=== PATIENT | female | born 1960 | race Caucasian/White ===

== ENCOUNTER 2019-04-28 11:21 | Inpatient (IN) | payer OTHER ==
[~2019-04-28] VITALS: Ht 157.5 cm; Wt 84.0 kg
[~2019-04-28 11:21] MED LIST: ALPR0.5T6 PO; ASPI-630 PO; CYCL10TA2 PO; ESTR2TAB PO; HYDR-2763 PO; LOSA100T14 PO; MELO15TA23 PO; METO10TA81 PO; MONT10TA49 PO; PANT20TA2 PO; PREG75CA PO; ZOLP10TA4 PO
[2019-04-28] MEDS ORDERED: IV NORMAL SALINE 1000ML BAG 1,000 ML IV SCH (11:35)
--- NOTE | 2019-04-28 11:57 | EKG ---
[facility] [address] [place] [address] Test Date: 2019-04-28 Test Time: 11:44:19 Pat Name: JALEESA KITCHEN Department: Room: Gender: F Property Adjuster: : 1960 Requested By: MARLEE WEEMS Order Number: [id number] Reading MD: Kenan Courtney MD Measurements Intervals [place] Rate: 101 P: 38 IL: 136 QRS: 22 QRSD: 74 T: 39 QT: 342 QTc: 444 Interpretive Statements SINUS TACHYCARDIA Electronically Signed On 05-07-2019 16:42:31 CDT by Kenan Courtney MD
[2019-04-28] MEDS: HYDROmorphone 2 MG/ML VIAL IV/SQ PRN ×3 (12:00→14:46)
--- NOTE | 2019-04-28 12:05 | PHYS DOC ---
Past Medical History Past Medical History: Anxiety, Asthma, Pancreatitis Past Surgical History: Cholecystectomy, Hysterectomy, Splenectomy, Other Additional Past Surgical Histo: 3 right foot surgeries Alcohol Use: None Drug Use: None Adult General Chief Complaint Chief Complaint: ABDOMINAL PAIN HPI HPI Patient is a 58-year-old female who presents to the emergency department for evaluation of epigastric abdominal discomfort radiating to her back as well as radiating diffusely throughout her entire abdomen, which began on Saturday. She has not had any nausea, vomiting, fever, or chest pain. She states that she has had pancreatitis in the past and the pain feels somewhat similar. She does have a history of chronic pain, and takes hydrocodone 7.5 mg several times daily for foot pain and back pain chronically. There are no alleviating or exacerbating factors to the patient's symptoms otherwise. Review of Systems Review of Systems Constitutional: Denies fever or chills [] Eyes: Denies change in visual acuity, redness, or eye pain [] HENT: Denies nasal congestion or sore throat [] Respiratory: Denies cough or shortness of breath [] Cardiovascular: The patient denies any shortness of breath, chest pain, palpitations, or orthopnea [] GI: No additional information not addressed in HPI [] : Denies dysuria or hematuria [] Musculoskeletal: Denies back pain or joint pain [] Integument: Denies rash or skin lesions [] Neurologic: Denies headache, focal weakness or sensory changes [] Endocrine: Denies polyuria or polydipsia [] All other systems were reviewed and found to be within normal limits, except as documented in this note. Current Medications Current Medications Current Medications Medications (Trade) Dose Ordered Sig/Patsy Start Time Stop Time Status Last Admin Dose Admin Hydromorphone HCl (Dilaudid) 1 mg PRN Q15MIN PRN 04/28/19 11:45 04/29/19 11:44 04/28/19 14:46 1 MG Iohexol (Omnipaque 300 Mg/ml) 100 ml STK-MED ONCE 04/28/19 12:37 04/28/19 12:37 DC Sodium Chloride 1,000 ml @ 1,000 mls/hr Q1H 04/28/19 11:35 04/28/19 12:34 DC 04/28/19 12:00 1,000 MLS/HR Allergies Allergies Allergies Coded Allergies Type Severity Reaction Last Updated Verified cefazolin Allergy Intermediate hypotension 09/30/18 Yes clindamycin Allergy Intermediate rash 09/30/18 Yes codeine Allergy Intermediate rash 04/28/19 Yes sulfamethoxazole Allergy Intermediate 09/29/18 Yes trimethoprim Allergy Intermediate 09/29/18 Yes Physical Exam Physical Exam PHYSICAL EXAM: CONSTITUTIONAL: Well developed, well nourished HEAD: normocephalic, atraumatic EENT: PERRL, EOMI. Conjunctivae normal color, sclerae non-icteric; moist mucous membranes. NECK: Supple, non-tender; no meningismus. LUNGS: Lungs CTA, breathing even and unlabored. Normal air movement. HEART: Regular rate and rhythm, no murmur CHEST: No deformity; non-tender ABDOMEN: The abdomen is soft, normal bowel sounds are present, there is diffuse tenderness to palpation of the entire abdomen, slightly more prominently in the epigastric area, without rebound or guarding. The remainder the abdomen is soft and non-tender, no masses or bruits. EXTREM: Normal ROM; no deformity, no calf tenderness. Normal pulses palpable in all extremities. There is no pedal edema. SKIN: No rash; no diaphoresis NEURO: Alert; normal speech and cognition; CN's grossly intact; strength grossly intact without focal deficit. BACK: No CVA TTP. Current Patient Data Vital Signs Vital Signs Date Time Temp Pulse Resp B/P (MAP) Pulse Ox O2 Delivery O2 Flow Rate FiO2 04/28/19 13:32 95 23 165/84 (111) 91 Nasal Cannula 4.0 04/28/19 11:28 98.4 98.4 Lab Values Laboratory Tests Test 04/28/19 11:50 04/28/19 13:35 White Blood Count 19.0 x10^3/uL (4.0-11.0) H Red Blood Count 4.17 x10^6/uL (3.50-5.40) Hemoglobin 14.9 g/dL (12.0-15.5) Hematocrit 43.2 % (36.0-47.0) Mean Corpuscular Volume 104 fL (79-100) H Mean Corpuscular Hemoglobin 36 pg (25-35) H Mean Corpuscular Hemoglobin Concent 35 g/dL (31-37) Red Cell Distribution Width 12.9 % (11.5-14.5) Platelet Count 366 x10^3/uL (140-400) Neutrophils (%) (Auto) 73 % (31-73) Lymphocytes (%) (Auto) 21 % (24-48) L Monocytes (%) (Auto) 5 % (0-9) Eosinophils (%) (Auto) 1 % (0-3) Basophils (%) (Auto) 1 % (0-3) Neutrophils # (Auto) 13.8 x10^3/uL (1.8-7.7) H Lymphocytes # (Auto) 3.9 x10^3/uL (1.0-4.8) Monocytes # (Auto) 0.9 x10^3/uL (0.0-1.1) Eosinophils # (Auto) 0.2 x10^3/uL (0.0-0.7) Basophils # (Auto) 0.1 x10^3/uL (0.0-0.2) Segmented Neutrophils % 81 % (35-66) H Lymphocytes % 18 % (24-48) L Monocytes % 1 % (0-10) Platelet Estimate Adequate (ADEQUATE) Activated Partial Thromboplast Time 30 SEC (24-38) Sodium Level 141 mmol/L (136-145) Potassium Level 4.0 mmol/L (3.5-5.1) Chloride Level 100 mmol/L (98-107) Carbon Dioxide Level 27 mmol/L (21-32) Anion Gap 14 (6-14) Blood Urea Nitrogen 7 mg/dL (7-20) Creatinine 0.8 mg/dL (0.6-1.0) Estimated GFR (Cockcroft-Gault) 73.4 BUN/Creatinine Ratio 9 (6-20) Glucose Level 133 mg/dL (70-99) H Lactic Acid Level 1.1 mmol/L (0.4-2.0) Calcium Level 9.8 mg/dL (8.5-10.1) Total Bilirubin 0.7 mg/dL (0.2-1.0) Aspartate Amino Transferase (AST) 69 U/L (15-37) H Alanine Aminotransferase (ALT) 89 U/L (14-59) H Alkaline Phosphatase 181 U/L (46-116) H Troponin I Quantitative < 0.017 ng/mL (0.000-0.055) Total Protein 7.7 g/dL (6.4-8.2) Albumin 3.9 g/dL (3.4-5.0) Albumin/Globulin Ratio 1.0 (1.0-1.7) Lipase 552 U/L (73-393) H Urine Collection Type Void Urine Color Yellow Urine Clarity Clear Urine pH 7.0 Urine Specific [place] 1.015 Urine Protein Negative mg/dL (NEG-TRACE) Urine Glucose (UA) Negative mg/dL (NEG) Urine Ketones (Stick) Trace mg/dL (NEG) Urine Blood Negative (NEG) Urine Nitrite Negative (NEG) Urine Bilirubin Negative (NEG) Urine Urobilinogen Dipstick 0.2 mg/dL (0.2 mg/dL) Urine Leukocyte Esterase Small (NEG) Urine RBC 1-2 /HPF (0-2) Urine WBC 1-4 /HPF (0-4) Urine Squamous Epithelial Cells Many /LPF Urine Renal Epithelial Cells Occ /LPF Urine Bacteria Moderate /HPF (0-FEW) Urine Mucus Slight /LPF Laboratory Tests 04/28/19 11:50 Laboratory Tests 04/28/19 11:50 EKG EKG [Sinus rhythm at a rate of 10 1 bpm, normal axis, normal intervals, nonspecific ST/T changes are present.] Radiology/Procedures Radiology/Procedures [PROCEDURE: CT ABD PELV W/ IV CONTRST ONLY EXAM: CT Abdomen and Pelvis with IV contrast CLINICAL HISTORY: Diffuse abdominal pain, history of pancreatitis. COMPARISON: 10/01/2018, 09/29/2018 TECHNIQUE: Helical CT of the abdomen and pelvis was performed following the administration of intravenous contrast. Axial, coronal and sagittal reformatted images were generated. PQRS compliance statement - One or more of the following individualized dose reduction techniques were utilized for this study: 1. Automated exposure control 2. Adjustment of the mA and/or kV according to patient size 3. Use of iterative reconstruction technique FINDINGS: Lower chest: Linear opacities in the lower lobes likely scarring/atelectasis. Abdomen and Pelvis: Liver is enlarged measuring 20.5 cm in length. Marked hepatic hypoattenuation consistent with hepatic steatosis. There has been a cholecystectomy. No biliary ductal dilatation. Trace fat infiltration is seen about the pancreatic body which may be seen with acute pancreatitis. This can be correlated with patient's symptoms and lab values. No peripancreatic fluid collection. Homogenous enhancement of the pancreas. There has been a splenectomy. Symmetric nephrograms. Left upper pole renal cortical scarring. No focal renal lesion. No hydronephrosis. No hydroureter. Moderate colonic stool content. No evidence for bowel obstruction. No abdominal or pelvic lymphadenopathy. No abdominal or pelvic ascites. Left adnexal cystic structure is seen. Small fat-containing periumbilical hernia. Bones: Osseous structures are unremarkable. IMPRESSION: 1. Trace fat infiltration about the pancreatic body may be seen with acute pancreatitis. No associated loculated fluid collection or regions of ischemia 2. Hepatomegaly and hepatic steatosis. 3. There has been a cholecystectomy. 4. Left adnexal cystic structure measuring approximately 3.5 cm. This can be further assessed with ultrasound and is not significantly changed to 09/29/2018. ] Course & Med Decision Making Course & Med Decision Making Pertinent Labs and Imaging studies reviewed. (See chart for details) []Patient's condition remains a stable. Discussed the case with the patient's PCP, who will admit the patient for further evaluation and requested GI cons ultation, call to GI was placed. Dragon Disclaimer Dragon Disclaimer This electronic medical record was generated, in whole or in part, using a voice recognition dictation system. Departure Departure Impression: Primary Impression: Acute pancreatitis Additional Impression: Leukocytosis Disposition: ADMITTED INPATIENT Admitting Physician: Jamilah Carrera Condition: STABLE Referrals: JAMILAH CARRERA MD (PCP) Problem Qualifiers MARLEE WEEMS MD Apr 28, 2019 12:05
[2019-04-28 12:06] LABS: BASO # 0.1 x10^3/uL (0.0-0.2); BASO % 1 % (0-3); EOS # 0.2 x10^3/uL (0.0-0.7); EOS % 1 % (0-3); HEMATOCRIT 43.2 % (36.0-47.0); HEMOGLOBIN 14.9 g/dL (12.0-15.5); LYMPH # 3.9 x10^3/uL (1.0-4.8); LYMPH % 21 % (24-48); MEAN CORPUSCULAR HEMOGLOBIN 36 pg (25-35); MEAN CORPUSCULAR HGB CONC 35 g/dL (31-37); MEAN CORPUSCULAR VOLUME 104 fL (79-100); MONO # 0.9 x10^3/uL (0.0-1.1); MONO % 5 % (0-9); NEUT # 13.8 x10^3/uL (1.8-7.7); NEUT % 73 % (31-73); PLATELET COUNT 366 x10^3/uL (140-400); RED BLOOD COUNT 4.17 x10^6/uL (3.50-5.40); RED CELL DISTRIBUTION WIDTH 12.9 % (11.5-14.5)
[2019-04-28 12:15] LABS: CALCIUM 9.8 mg/dL (8.5-10.1); CREATININE 0.8 mg/dL (0.6-1.0); GFR 73.4
[2019-04-28 12:21] LABS: ALBUMIN 3.9 g/dL (3.4-5.0); TOTAL BILIRUBIN 0.7 mg/dL (0.2-1.0); TOTAL PROTEIN 7.7 g/dL (6.4-8.2)
[2019-04-28] MEDS ORDERED: IOHEXOL 300 MG/ML 100ML VIAL. ONE (12:37)
[2019-04-28] MEDS ORDERED: IOHEXOL 300 MG/ML 100ML VIAL. IV ONE (12:45)
[2019-04-28 13:01] LABS: % LYMPHS 18 % (24-48); % MONOS 1 % (0-10); % SEGS 81 % (35-66)
[2019-04-28 13:02] LABS: PLT ESTIMATE ADEQUATE (ADEQUATE)
--- NOTE | 2019-04-28 13:33 | RAD ---
EXAM: CT Abdomen and Pelvis with IV contrast CLINICAL HISTORY: Diffuse abdominal pain, history of pancreatitis. COMPARISON: 10/01/2018, 09/29/2018 TECHNIQUE: Helical CT of the abdomen and pelvis was performed following the administration of intravenous contrast. Axial, coronal and sagittal reformatted images were generated. PQRS compliance statement - One or more of the following individualized dose reduction techniques were utilized for this study: 1. Automated exposure control 2. Adjustment of the mA and/or kV according to patient size 3. Use of iterative reconstruction technique FINDINGS: Lower chest: Linear opacities in the lower lobes likely scarring/atelectasis. Abdomen and Pelvis: Liver is enlarged measuring 20.5 cm in length. Marked hepatic hypoattenuation consistent with hepatic steatosis. There has been a cholecystectomy. No biliary ductal dilatation. Trace fat infiltration is seen about the pancreatic body which may be seen with acute pancreatitis. This can be correlated with patient's symptoms and lab values. No peripancreatic fluid collection. Homogenous enhancement of the pancreas. There has been a splenectomy. Symmetric nephrograms. Left upper pole renal cortical scarring. No focal renal lesion. No hydronephrosis. No hydroureter. Moderate colonic stool content. No evidence for bowel obstruction. No abdominal or pelvic lymphadenopathy. No abdominal or pelvic ascites. Left adnexal cystic structure is seen. Small fat-containing periumbilical hernia. Bones: Osseous structures are unremarkable. IMPRESSION: 1. Trace fat infiltration about the pancreatic body may be seen with acute pancreatitis. No associated loculated fluid collection or regions of ischemia 2. Hepatomegaly and hepatic steatosis. 3. There has been a cholecystectomy. 4. Left adnexal cystic structure measuring approximately 3.5 cm. This can be further assessed with ultrasound and is not significantly changed to 09/29/2018. Electronically signed by: Calos Champion MD (04/28/2019 1:30 PM) [facility]
[2019-04-28 13:45] LABS: BILIRUBIN,URINE NEGATIVE (NEG); CLARITY,URINE CLEAR; COLOR,URINE YELLOW; NITRITE,URINE NEGATIVE (NEG); PROTEIN,URINE NEGATIVE (NEG-TRACE); UROBILINOGEN,URINE 0.2 mg/dL (0.2 mg/dL)
[2019-04-28 14:06] LABS: SQUAMOUS EPITHELIAL CELL,UR MANY /LPF
[2019-04-28 14:07] LABS: BACTERIA,URINE MODERATE /HPF (0-FEW)
[2019-04-28] MEDS ORDERED: ONDANSETRON PF 4 MG/2 ML VIAL. ONE (14:18)
[2019-04-28] MEDS ORDERED: ONDANSETRON PF 4 MG/2 ML VIAL. IV ONE (14:30)
--- NOTE | 2019-04-28 15:42 | PDOC2 ---
GI CONSULT Reason For Consult: Acute pancreatitis HPI: HPI: 58 y/o female who we saw in 09/2018 w/ pancreatitis of unclear etiology - no alcohol use, s/p cholecystectomy, normal IgG4, triglycerides, and calcium at that time. Back to ER w/ recurrent abd pain (diffuse but mostly to left and epigastrium wrapping around to left back and over left shoulder) that began on Saturday w/o precipitating events. Associated w/ decreased appetite and vomiting x 1 (in the ER after CT). H/o GERD on Protonix QD and Reglan QID. No dysphagia. No hematemesis, diarrhea, constipation, hematochezia, melena, or weight loss. EGD 2001 (Dr. Fairchild): erosive distal esophagitis, 3mm hiatal hernia. EGD 2005 (Dr. Herndon): H. pylori negative gastritis. S/p cholecystectomy (stones) and splenectomy. No previous colonoscopy. Did not have MRCP as previously recommended. Chronic foot, knee, and back pain on hydrocodone. She previously also reported Meloxicam - unclear if still taking. PMH: PMH: asthma, arthritis, GERD, hiatal hernia, pancreatitis, breast cancer, hemolytic anemia cholecystectomy, splenectomy, right foot surgery x 3, ?[place], ?mastectomy FH: Family History: Other (doesn't know) Social History: Smoke: No ALCOHOL: none Drugs: None ROS: GEN: Denies fevers, chills, sweats HEENT: Denies blurred vision, sore throat CV: Denies chest pain RESP: Denies shortness of air, cough GI: Per HPI : Denies hematuria, dysuria ENDO: Denies weight changes NEURO: Denies confusion, dizziness MSK: Denies weakness, joint pain/swelling SKIN: Denies jaundice, pruritus Vitals: Vitals: Vital Signs Date Time Temp Pulse Resp B/P (MAP) Pulse Ox O2 Delivery O2 Flow Rate FiO2 04/28/19 12:22 88 04/28/19 11:28 98.4 102 14 174/98 (123) Room Air 98.4 Labs: Labs: Laboratory Tests Test 04/28/19 11:50 04/28/19 13:35 White Blood Count 19.0 x10^3/uL (4.0-11.0) Red Blood Count 4.17 x10^6/uL (3.50-5.40) Hemoglobin 14.9 g/dL (12.0-15.5) Hematocrit 43.2 % (36.0-47.0) Mean Corpuscular Volume 104 fL (79-100) Mean Corpuscular Hemoglobin 36 pg (25-35) Mean Corpuscular Hemoglobin Concent 35 g/dL (31-37) Red Cell Distribution Width 12.9 % (11.5-14.5) Platelet Count 366 x10^3/uL (140-400) Neutrophils (%) (Auto) 73 % (31-73) Lymphocytes (%) (Auto) 21 % (24-48) Monocytes (%) (Auto) 5 % (0-9) Eosinophils (%) (Auto) 1 % (0-3) Basophils (%) (Auto) 1 % (0-3) Neutrophils # (Auto) 13.8 x10^3/uL (1.8-7.7) Lymphocytes # (Auto) 3.9 x10^3/uL (1.0-4.8) Monocytes # (Auto) 0.9 x10^3/uL (0.0-1.1) Eosinophils # (Auto) 0.2 x10^3/uL (0.0-0.7) Basophils # (Auto) 0.1 x10^3/uL (0.0-0.2) Segmented Neutrophils % 81 % (35-66) Lymphocytes % 18 % (24-48) Monocytes % 1 % (0-10) Platelet Estimate Adequate (ADEQUATE) Activated Partial Thromboplast Time 30 SEC (24-38) Sodium Level 141 mmol/L (136-145) Potassium Level 4.0 mmol/L (3.5-5.1) Chloride Level 100 mmol/L (98-107) Carbon Dioxide Level 27 mmol/L (21-32) Anion Gap 14 (6-14) Blood Urea Nitrogen 7 mg/dL (7-20) Creatinine 0.8 mg/dL (0.6-1.0) Estimated GFR (Cockcroft-Gault) 73.4 BUN/Creatinine Ratio 9 (6-20) Glucose Level 133 mg/dL (70-99) Lactic Acid Level 1.1 mmol/L (0.4-2.0) Calcium Level 9.8 mg/dL (8.5-10.1) Total Bilirubin 0.7 mg/dL (0.2-1.0) Aspartate Amino Transf (AST/SGOT) 69 U/L (15-37) Alanine Aminotransferase (ALT/SGPT) 89 U/L (14-59) Alkaline Phosphatase 181 U/L (46-116) Troponin I Quantitative < 0.017 ng/mL (0.000-0.055) Total Protein 7.7 g/dL (6.4-8.2) Albumin 3.9 g/dL (3.4-5.0) Albumin/Globulin Ratio 1.0 (1.0-1.7) Lipase 552 U/L (73-393) Urine Collection Type Void Urine Color Yellow Urine Clarity Clear Urine pH 7.0 Urine Specific [place] 1.015 Urine Protein Negative mg/dL (NEG-TRACE) Urine Glucose (UA) Negative mg/dL (NEG) Urine Ketones (Stick) Trace mg/dL (NEG) Urine Blood Negative (NEG) Urine Nitrite Negative (NEG) Urine Bilirubin Negative (NEG) Urine Urobilinogen Dipstick 0.2 mg/dL (0.2 mg/dL) Urine Leukocyte Esterase Small (NEG) Urine RBC 1-2 /HPF (0-2) Urine WBC 1-4 /HPF (0-4) Urine Squamous Epithelial Cells Many /LPF Urine Renal Epithelial Cells Occ /LPF Urine Bacteria Moderate /HPF (0-FEW) Urine Mucus Slight /LPF Allergies: Coded Allergies: cefazolin (Verified Allergy, Intermediate, hypotension, 09/30/18) clindamycin (Verified Allergy, Intermediate, rash, 09/30/18) codeine (Verified Allergy, Intermediate, rash, 04/28/19) TOLERATES HYDROCODONE sulfamethoxazole (Verified Allergy, Intermediate, 09/29/18) trimethoprim (Verified Allergy, Intermediate, 09/29/18) Medications: Current Medications Medications (Trade) Dose Ordered Sig/Patsy Route PRN Reason Start Time Stop Time Status Last Admin Dose Admin Hydromorphone HCl (Dilaudid) 1 mg PRN Q15MIN PRN IV/SQ PAIN GREATER THAN 3/10 04/28/19 11:45 04/29/19 11:44 04/28/19 14:46 Sodium Chloride 1,000 ml @ 1,000 mls/hr Q1H IV 04/28/19 11:35 8/13/19 12:34 DC 04/28/19 12:00 Iohexol (Omnipaque 300 Mg/ml) 75 ml 1X ONCE IV 04/28/19 12:45 04/28/19 12:46 DC 04/28/19 13:04 Ondansetron HCl (Zofran) 4 mg 1X ONCE IV 04/28/19 14:30 04/28/19 14:31 DC 04/28/19 14:20 Imaging: Imaging: CT A/P w/ IV contrast Lower chest: Linear opacities in the lower lobes likely scarring/atelectasis. Abdomen and Pelvis: Liver is enlarged measuring 20.5 cm in length. Marked hepatic hypoattenuation consistent with hepatic steatosis. There has been a cholecystectomy. No biliary ductal dilatation. Trace fat infiltration is seen about the pancreatic body which may be seen with acute pancreatitis. This can be correlated with patient's symptoms and lab values. No peripancreatic fluid collection. Homogenous enhancement of the pancreas. There has been a splenectomy. Symmetric nephrograms. Left upper pole renal cortical scarring. No focal renal lesion. No hydronephrosis. No hydroureter. Moderate colonic stool content. No evidence for bowel obstruction. No abdominal or pelvic lymphadenopathy. No abdominal or pelvic ascites. Left adnexal cystic structure is seen. Small fat-containing periumbilical hernia. Bones: Osseous structures are unremarkable. IMPRESSION: 1. Trace fat infiltration about the pancreatic body may be seen with acute pancreatitis. No associated loculated fluid collection or regions of ischemia 2. Hepatomegaly and hepatic steatosis. 3. There has been a cholecystectomy. 4. Left adnexal cystic structure measuring approximately 3.5 cm. This can be further assessed with ultrasound and is not significantly changed to 09/29/2018. PE: GEN: NAD HEENT: Atraumatic, PERRL LUNGS: CTAB HEART: mildly tachycardic ABD: NABS, S/ND, round, soft, epigastric discomfort to LUQ around left flank EXTREMITY: No edema SKIN: No rashes, no jaundice NEURO/PSYCH: A & O �3 A/P: A/P: Recurrent pancreatitis - unclear etiology Chronic leukocytosis, mildly elevated LFTs GERD CRC screen - none Hepatic steatosis S/p cholecystectomy and splenectomy Chronic pain HTN -- NPO, supportive care. IVF and pain control per primary. Continue PPI. Will review w/ Dr. Alonzo - previous recs for outpt MRCP. IMANI LA Apr 28, 2019 15:42
[2019-04-28] MEDS ORDERED: ALBU2.5V8 INH (16:12)
[2019-04-28 16:35] VITALS: BP 145/78
[2019-04-28] MEDS ORDERED: TRAZ-118 PO (16:46)
[2019-04-28] MEDS ORDERED: ALBUTEROL SULFATE 2.5 MG/3 ML NEBU. NEB PRN (18:15)
[2019-04-28] MEDS: ONDANSETRON PF 4 MG/2 ML VIAL. IV PRN (18:35)
[2019-04-28] MEDS: fentaNYL PF VIAL 100 MCG/2 ML VIAL IV PRN ×2 (18:35→21:03)
[2019-04-28] MEDS: IV NORMAL SALINE 1000ML BAG 1,000 ML IV SCH (18:41)
[2019-04-28] MEDS: LOSARTAN POTASSIUM 50 MG TABLET. PO SCH (18:42)
[2019-04-28] MEDS: MELOXICAM 7.5 MG TABLET PO SCH (18:44)
[2019-04-28] MEDS: PANTOPRAZOLE 40 MG TABLET.DR. PO SCH (18:44)
[2019-04-28] MEDS: ALPRAZolam 0.5 MG TABLET PO SCH ×2 (18:44→20:18)
[2019-04-28] MEDS: ESTRADIOL 1 MG TABLET. PO SCH (18:54)
[2019-04-28 19:00] VITALS: BP 156/74
[2019-04-28] MEDS: traZODone 50 MG TABLET. PO SCH (20:17)
[2019-04-28] MEDS: METOCLOPRAMIDE 10 MG TABLET. PO SCH (20:18)
[2019-04-28] MEDS: ZOLPIDEM 5 MG TABLET. PO SCH (20:18)
[2019-04-28] MEDS: MONTELUKAST SODIUM 10 MG TABLET. PO SCH (20:18)
[2019-04-28 23:00] VITALS: BP 122/66
[2019-04-29] MEDS: IV NORMAL SALINE 1000ML BAG 1,000 ML IV SCH ×3 (00:56→18:22)
[2019-04-29] MEDS: fentaNYL PF VIAL 100 MCG/2 ML VIAL IV PRN ×10 (00:56→22:44)
[2019-04-29 03:00] VITALS: BP 151/78
[2019-04-29 05:37] LABS: ALBUMIN 3.1 g/dL (3.4-5.0); CALCIUM 8.5 mg/dL (8.5-10.1); CREATININE 0.8 mg/dL (0.6-1.0); GFR 73.4; POTASSIUM 3.8 mmol/L (3.5-5.1); TOTAL PROTEIN 6.3 g/dL (6.4-8.2)
[2019-04-29 07:00] VITALS: BP 170/101
[2019-04-29] MEDS: ONDANSETRON PF 4 MG/2 ML VIAL. IV PRN (07:52)
[2019-04-29] MEDS: PANTOPRAZOLE 40 MG TABLET.DR. PO SCH (07:57)
[2019-04-29] MEDS: METOCLOPRAMIDE 10 MG TABLET. PO SCH ×4 (07:57→21:30)
[2019-04-29] MEDS: LOSARTAN POTASSIUM 50 MG TABLET. PO SCH (07:58)
[2019-04-29] MEDS: ALPRAZolam 0.5 MG TABLET PO SCH ×4 (07:59→21:30)
[2019-04-29] MEDS: MELOXICAM 7.5 MG TABLET PO SCH (07:59)
[2019-04-29] MEDS ORDERED: fentaNYL PF VIAL 100 MCG/2 ML VIAL IV ONE (08:00)
[2019-04-29] MEDS: CYCLOBENZAPRINE 10 MG TABLET. PO PRN (08:00)
[2019-04-29] MEDS: ESTRADIOL 1 MG TABLET. PO SCH (10:21)
--- NOTE | 2019-04-29 10:47 | PDOC ---
Subjective: Subjective: Still has some pain, taking sips or water w/ pills, breathing okay. Objective: Vital Signs: Vital Signs Date Time Temp Pulse Resp B/P (MAP) Pulse Ox O2 Delivery O2 Flow Rate FiO2 04/29/19 10:23 20 93 Nasal Cannula 3.0 04/29/19 08:00 95 151/78 04/29/19 07:00 97.9 97.9 Labs: Laboratory Tests Test 04/28/19 11:50 04/28/19 13:35 04/29/19 05:00 White Blood Count 19.0 x10^3/uL Red Blood Count 4.17 x10^6/uL Hemoglobin 14.9 g/dL Hematocrit 43.2 % Mean Corpuscular Volume 104 fL Mean Corpuscular Hemoglobin 36 pg Mean Corpuscular Hemoglobin Concent 35 g/dL Red Cell Distribution Width 12.9 % Platelet Count 366 x10^3/uL Neutrophils (%) (Auto) 73 % Lymphocytes (%) (Auto) 21 % Monocytes (%) (Auto) 5 % Eosinophils (%) (Auto) 1 % Basophils (%) (Auto) 1 % Neutrophils # (Auto) 13.8 x10^3/uL Lymphocytes # (Auto) 3.9 x10^3/uL Monocytes # (Auto) 0.9 x10^3/uL Eosinophils # (Auto) 0.2 x10^3/uL Basophils # (Auto) 0.1 x10^3/uL Segmented Neutrophils % 81 % Lymphocytes % 18 % Monocytes % 1 % Platelet Estimate Adequate Activated Partial Thromboplast Time 30 SEC Sodium Level 141 mmol/L 140 mmol/L Potassium Level 4.0 mmol/L 3.8 mmol/L Chloride Level 100 mmol/L 104 mmol/L Carbon Dioxide Level 27 mmol/L 26 mmol/L Anion Gap 14 10 Blood Urea Nitrogen 7 mg/dL 6 mg/dL Creatinine 0.8 mg/dL 0.8 mg/dL Estimated GFR (Cockcroft-Gault) 73.4 73.4 BUN/Creatinine Ratio 9 8 Glucose Level 133 mg/dL 117 mg/dL Lactic Acid Level 1.1 mmol/L Calcium Level 9.8 mg/dL 8.5 mg/dL Total Bilirubin 0.7 mg/dL 1.0 mg/dL Aspartate Amino Transf (AST/SGOT) 69 U/L 63 U/L Alanine Aminotransferase (ALT/SGPT) 89 U/L 75 U/L Alkaline Phosphatase 181 U/L 160 U/L Troponin I Quantitative < 0.017 ng/mL Total Protein 7.7 g/dL 6.3 g/dL Albumin 3.9 g/dL 3.1 g/dL Albumin/Globulin Ratio 1.0 1.0 Lipase 552 U/L 289 U/L Urine Collection Type Void Urine Color Yellow Urine Clarity Clear Urine pH 7.0 Urine Specific [place] 1.015 Urine Protein Negative mg/dL Urine Glucose (UA) Negative mg/dL Urine Ketones (Stick) Trace mg/dL Urine Blood Negative Urine Nitrite Negative Urine Bilirubin Negative Urine Urobilinogen Dipstick 0.2 mg/dL Urine Leukocyte Esterase Small Urine RBC 1-2 /HPF Urine WBC 1-4 /HPF Urine Squamous Epithelial Cells Many /LPF Urine Renal Epithelial Cells Occ /LPF Urine Bacteria Moderate /HPF Urine Mucus Slight /LPF Amylase Level 64 U/L PE: GEN: NAD LUNGS: NC HEART: RRR ABD: quiet, round, diffuse discomfort NEURO/PSYCH: A & O �3 A/P: Recurrent pancreatitis - unclear etiology Chronic leukocytosis Mildly elevated LFTs - improved, hepatic steatosis on imaging -- Still significant pain - going to try some sips of water and ice chips. MRCP later on. IMANI LA Apr 29, 2019 10:47
[2019-04-29 11:00] VITALS: BP 150/84
[2019-04-29 15:00] VITALS: BP 148/85
--- NOTE | 2019-04-29 15:32 | HP ---
ADMIT DATE: CHIEF COMPLAINT AND HISTORY OF PRESENT ILLNESS: This 58-year-old white female is well known to me from followup in the office. I spoke with her the evening prior to admission with having abdominal pain, which she felt was likely due to her pancreatitis. She was on a clear liquid diet, was no better by the day of this admission and was sent to the Emergency Room where she was found to have laboratory and CT scan of the abdomen evidence of pancreatitis and admitted for the same. PAST MEDICAL HISTORY: Remarkable for the pancreatitis, but no etiology found some 8 months or so ago. She has a history of asthma, anxiety, remote history of hemolytic anemia. PAST SURGICAL HISTORY: Remarkable for cholecystectomy, hysterectomy, splenectomy, foot surgeries. MEDICATIONS: Brought with the patient, listed on computer and have been addressed. ALLERGIES: SHE IS ALLERGIC TO CEFAZOLIN, CLINDAMYCIN, CODEINE, SULFAMETHOXAZOLE AND TRIMETHOPRIM. SOCIAL HISTORY: She is nonsmoker, nondrinker, does not use drugs. , lives at home with her . FAMILY HISTORY: Noncontributory. REVIEW OF SYSTEMS: Remarkable for epigastric abdominal pain that radiates into her back throughout her whole abdomen consistent with what she has had before with pancreatitis. She has some hydrocodone 7.5, which she takes for foot pain, which have not touched this pain. PHYSICAL EXAMINATION: GENERAL: She is well-developed, well-nourished white female, appears very uncomfortable. VITAL SIGNS: Stable. She is afebrile. HEAD, EYES, EARS, NOSE, AND THROAT: Unremarkable. NECK: Supple, without lymphadenopathy or thyromegaly. CHEST: Clear to auscultation and percussion. HEART: Regular rate and rhythm without S3, S4 or murmur. ABDOMEN: Soft, diffusely tender throughout the entire abdomen, worse in the epigastric area without rebound or guarding. EXTREMITIES: Without cyanosis, clubbing, or edema. NEUROLOGIC: She is intact. LABORATORY DATA: Initial laboratory is remarkable for a leukocytosis with a white count of 19,000 with a left shift. Hemoglobin is 14.9. AST is 69 elevated as her ALT at 89 and alkaline phosphatase 181, lipase was elevated at 552 on admission. Urinalysis was unremarkable as was PTT. IMPRESSION: 1. Acute pancreatitis. 2. Multiple other problems listed above. PLAN: The patient has been admitted. She will be hydrated. Nausea control will be undertaken. Should be made n.p.o. GI will be asked to see him. The patient will be monitored, managed and treated appropriately. JAMILAH CARRERA MD DR: MACHO/nohemi JOB#: [id number] / [id number]
--- NOTE | 2019-04-29 15:50 | NUR ---
SW following pt for anticipated dc needs. Chart reviewed. Pt lives at home. NO SW needs noted at this time.
[2019-04-29 19:00] VITALS: BP 155/87
[2019-04-29] MEDS: traZODone 50 MG TABLET. PO SCH (21:30)
[2019-04-29] MEDS: ZOLPIDEM 5 MG TABLET. PO SCH (21:30)
[2019-04-29] MEDS: MONTELUKAST SODIUM 10 MG TABLET. PO SCH (21:30)
[2019-04-29 23:00] VITALS: BP 126/77
[2019-04-30] MEDS: fentaNYL PF VIAL 100 MCG/2 ML VIAL IV PRN ×9 (01:01→23:35)
[2019-04-30 03:00] VITALS: BP 143/77
[2019-04-30] MEDS: IV NORMAL SALINE 1000ML BAG 1,000 ML IV SCH ×3 (03:04→17:13)
[2019-04-30 07:00] VITALS: BP 160/85
[2019-04-30] MEDS: METOCLOPRAMIDE 10 MG TABLET. PO SCH ×4 (07:30→20:47)
[2019-04-30] MEDS: PANTOPRAZOLE 40 MG TABLET.DR. PO SCH (07:30)
--- NOTE | 2019-04-30 09:00 | PN ---
DATE: 04/30/2019 LOCATION: She is in room 519. SUBJECTIVE: The patient is awake, alert, is in attendance. She has ongoing abdominal pain, but feels like it has lessened some. Complaints of having allergic reaction to the soap or something with ear swelling and itching today. OBJECTIVE: VITAL SIGNS: Stable. She is afebrile. GENERAL: She is awake and alert. CHEST: Clear. HEART: Regular. ABDOMEN: With ongoing diffuse tenderness. She does have a little bit of swelling in both ears consistent with allergic contact type of event. IMPRESSION: Pancreatitis, clinically improving, but slow. PLAN: Continue n.p.o. status until GI feels like she can have otherwise pain control, nausea control, undergoing once this over done with and the patient has settled down, an MRCP as an outpatient as planned. JAMILAH CARRERA MD DR: MACHO/nohemi JOB#: [id number] / [id number]
[2019-04-30] MEDS: ESTRADIOL 1 MG TABLET. PO SCH (09:15)
[2019-04-30] MEDS: LOSARTAN POTASSIUM 50 MG TABLET. PO SCH (09:16)
[2019-04-30] MEDS: MELOXICAM 7.5 MG TABLET PO SCH (09:16)
[2019-04-30] MEDS: ALPRAZolam 0.5 MG TABLET PO SCH ×4 (09:16→20:47)
--- NOTE | 2019-04-30 10:41 | PDOC ---
Subjective: Subjective: Still needing regular pain meds, sipping some water and would like a bite of jello (but not lemon). Wonders about MRCP. Objective: Vital Signs: Vital Signs Date Time Temp Pulse Resp B/P (MAP) Pulse Ox O2 Delivery O2 Flow Rate FiO2 04/30/19 10:35 96 Nasal Cannula 2.0 04/30/19 09:18 88 160/85 04/30/19 09:18 16 04/30/19 07:00 98.2 98.2 PE: GEN: sitting on edge of bed LUNGS: NC HEART: RRR ABD: quiet BS, diffusely tender NEURO/PSYCH: A & O �3 A/P: Recurrent pancreatitis - unclear etiology Chronic leukocytosis Mildly elevated LFTs - improved, hepatic steatosis on imaging -- Cautiously try clear liquids and recheck basic labs. ?MRCP tomorrow - will check w/ Dr. Alonzo. IMANI LA Apr 30, 2019 10:41
[2019-04-30 11:00] VITALS: BP 164/87
[2019-04-30 11:38] LABS: HEMATOCRIT 37.2 % (36.0-47.0); HEMOGLOBIN 12.6 g/dL (12.0-15.5); RED BLOOD COUNT 3.54 x10^6/uL (3.50-5.40); RED CELL DISTRIBUTION WIDTH 12.9 % (11.5-14.5); WHITE BLOOD COUNT 17.3 x10^3/uL (4.0-11.0)
[2019-04-30] MEDS: POLYETHYLENE GLYCOL 3350 17 GM PACKET. PO SCH (11:44)
[2019-04-30] MEDS: CYCLOBENZAPRINE 10 MG TABLET. PO PRN ×2 (11:56→17:10)
[2019-04-30 12:10] LABS: ALBUMIN 3.1 g/dL (3.4-5.0); ALBUMIN/GLOBULIN RATIO 0.9 (1.0-1.7); CALCIUM 8.4 mg/dL (8.5-10.1); CREATININE 0.6 mg/dL (0.6-1.0); GFR 102.3; TOTAL BILIRUBIN 0.8 mg/dL (0.2-1.0); TOTAL PROTEIN 6.5 g/dL (6.4-8.2)
[2019-04-30 15:00] VITALS: BP 158/80
[2019-04-30 19:00] VITALS: BP 151/79
[2019-04-30] MEDS: MONTELUKAST SODIUM 10 MG TABLET. PO SCH (20:47)
[2019-04-30] MEDS: ZOLPIDEM 5 MG TABLET. PO SCH (20:47)
[2019-04-30] MEDS: traZODone 50 MG TABLET. PO SCH (20:47)
[2019-04-30 23:00] VITALS: BP 153/81
[2019-05-01] MEDS: IV NORMAL SALINE 1000ML BAG 1,000 ML IV SCH ×3 (01:09→15:52)
[2019-05-01] MEDS: fentaNYL PF VIAL 100 MCG/2 ML VIAL IV PRN ×9 (01:52→20:42)
[2019-05-01 03:00] VITALS: BP 150/76
[2019-05-01 07:00] VITALS: BP 164/89
[2019-05-01] MEDS: ESTRADIOL 1 MG TABLET. PO SCH (08:23)
[2019-05-01] MEDS: PANTOPRAZOLE 40 MG TABLET.DR. PO SCH (08:24)
[2019-05-01] MEDS: ALPRAZolam 0.5 MG TABLET PO SCH ×4 (08:24→20:41)
[2019-05-01] MEDS: METOCLOPRAMIDE 10 MG TABLET. PO SCH ×4 (08:24→20:41)
[2019-05-01] MEDS: LOSARTAN POTASSIUM 50 MG TABLET. PO SCH (08:24)
[2019-05-01] MEDS: MELOXICAM 7.5 MG TABLET PO SCH (08:25)
[2019-05-01] MEDS: POLYETHYLENE GLYCOL 3350 17 GM PACKET. PO SCH (08:25)
[2019-05-01 11:00] VITALS: BP 176/91
[2019-05-01] MEDS: CYCLOBENZAPRINE 10 MG TABLET. PO PRN ×2 (11:07→21:13)
--- NOTE | 2019-05-01 12:56 | PDOC ---
Subjective: Subjective: Patient and friend with many questions - why not MRCP in the hospital, how is she supposed to manage pain at home, what will happen if MRCP is abnormal? Taking clears but still has significant abd pain. Concerns her blood pressure is elevated when pain not controlled. Objective: Objective: Nurse says requesting Fentanyl round the clock and pt reports high level of pain, Dr. Osuna defers diet to GI. Vital Signs: Vital Signs Date Time Temp Pulse Resp B/P (MAP) Pulse Ox O2 Delivery O2 Flow Rate FiO2 05/01/19 11:23 94 Room Air 05/01/19 11:20 18 05/01/19 11:08 2.0 05/01/19 11:00 98.1 82 176/91 (119) 98.1 PE: GEN: NAD LUNGS: NC HEART: RRR ABD: soft, epigastric and LUQ discomfort - stable NEURO/PSYCH: A & O �3 A/P: Recurrent pancreatitis - unclear etiology -- Requiring frequent doses of IV pain medication. Keep to clears for today and consider full liquids tomorrow if pain improved. Similar to last admission for pancreatitis - very slow to improve then and complicated with chronic pain issues w/ chronic narcotic use. Outpt MRCP and screening colonoscopy. IMANI LA May 01, 2019 12:55
[2019-05-01 15:00] VITALS: BP 176/76
--- NOTE | 2019-05-01 16:00 | PDOC ---
GENERAL General: vss and afebrile. awake and alert and in attendance. chest clear, heart regular, abdomen a little less tender but still significant in epigastric area. wbc and lft's still elevated yesterday and will recheck in am. advancement of diet per GI. home pain med use not issue in this case with doses there for chronic ankle/foot pain a drop in bucket compared to doses here for the abdominal pain. await clearing. VITAL SIGNS/I&O Vital Signs/I&O: Vital Signs Date Time Temp Pulse Resp B/P (MAP) Pulse Ox O2 Delivery O2 Flow Rate FiO2 05/01/19 15:52 20 94 Nasal Cannula 2.0 05/01/19 11:00 98.1 82 176/91 (119) 98.1 I & O 04/30/19 04/30/19 05/01/19 14:59 22:59 06:59 Intake Total 400 ml 240 ml Output Total 1 ml Balance 399 ml 240 ml ALLERGIES Allergies: Allergies Coded Allergies Type Severity Reaction Last Updated Verified cefazolin Allergy Intermediate hypotension 09/30/18 Yes clindamycin Allergy Intermediate rash 09/30/18 Yes codeine Allergy Intermediate rash 04/28/19 Yes sulfamethoxazole Allergy Intermediate 09/29/18 Yes trimethoprim Allergy Intermediate 09/29/18 Yes JAMILAH CARRERA MD May 01, 2019 16:00
[2019-05-01 19:00] VITALS: BP 174/84
[2019-05-01] MEDS: traZODone 50 MG TABLET. PO SCH (20:40)
[2019-05-01] MEDS: MONTELUKAST SODIUM 10 MG TABLET. PO SCH (20:41)
[2019-05-01] MEDS: ZOLPIDEM 5 MG TABLET. PO SCH (20:41)
[2019-05-01 23:00] VITALS: BP 165/87
[2019-05-02] MEDS: IV NORMAL SALINE 1000ML BAG 1,000 ML IV SCH ×2 (00:27→08:39)
[2019-05-02] MEDS: fentaNYL PF VIAL 100 MCG/2 ML VIAL IV PRN ×11 (00:27→23:41)
[2019-05-02 03:00] VITALS: BP 139/60
[2019-05-02 04:49] LABS: BASO % 0 % (0-3); EOS # 0.3 x10^3/uL (0.0-0.7); EOS % 2 % (0-3); HEMATOCRIT 33.5 % (36.0-47.0); HEMOGLOBIN 11.4 g/dL (12.0-15.5); LYMPH # 4.4 x10^3/uL (1.0-4.8); LYMPH % 29 % (24-48); MEAN CORPUSCULAR HEMOGLOBIN 35 pg (25-35); MEAN CORPUSCULAR HGB CONC 34 g/dL (31-37); MEAN CORPUSCULAR VOLUME 104 fL (79-100); MONO # 0.9 x10^3/uL (0.0-1.1); MONO % 6 % (0-9); NEUT # 9.6 x10^3/uL (1.8-7.7); NEUT % 63 % (31-73); PLATELET COUNT 295 x10^3/uL (140-400); RED BLOOD COUNT 3.23 x10^6/uL (3.50-5.40); RED CELL DISTRIBUTION WIDTH 12.9 % (11.5-14.5); WHITE BLOOD COUNT 15.3 x10^3/uL (4.0-11.0)
[2019-05-02 05:13] LABS: ALBUMIN 2.8 g/dL (3.4-5.0); ALBUMIN/GLOBULIN RATIO 0.8 (1.0-1.7); CALCIUM 8.5 mg/dL (8.5-10.1); CREATININE 0.6 mg/dL (0.6-1.0); GFR 102.3; POTASSIUM 3.4 mmol/L (3.5-5.1); TOTAL BILIRUBIN 0.7 mg/dL (0.2-1.0); TOTAL PROTEIN 6.4 g/dL (6.4-8.2)
[2019-05-02 07:00] VITALS: BP 162/82
[2019-05-02] MEDS: PANTOPRAZOLE 40 MG TABLET.DR. PO SCH (08:47)
[2019-05-02] MEDS: ESTRADIOL 1 MG TABLET. PO SCH (08:47)
[2019-05-02] MEDS: MELOXICAM 7.5 MG TABLET PO SCH (08:47)
[2019-05-02] MEDS: METOCLOPRAMIDE 10 MG TABLET. PO SCH ×4 (08:47→19:27)
[2019-05-02] MEDS: POLYETHYLENE GLYCOL 3350 17 GM PACKET. PO SCH (08:48)
[2019-05-02] MEDS: ALPRAZolam 0.5 MG TABLET PO SCH ×4 (08:48→19:27)
[2019-05-02] MEDS: LOSARTAN POTASSIUM 50 MG TABLET. PO SCH (08:48)
[2019-05-02 11:00] VITALS: BP 186/94
--- NOTE | 2019-05-02 11:27 | PDOC ---
G I PROGRESS NOTE Reason for Follow-up Pancreatitis Subjective Pain improving Physical Exam Lungs decreased BS CV S1 S2 ABD +BS, soft, + epigastric tenderness Review of Relevant I have reviewed the following items nicole (where applicable) has been applied. Labs Laboratory Tests Test 04/30/19 11:30 05/02/19 04:30 White Blood Count 17.3 x10^3/uL (4.0-11.0) 15.3 x10^3/uL (4.0-11.0) Red Blood Count 3.54 x10^6/uL (3.50-5.40) 3.23 x10^6/uL (3.50-5.40) Hemoglobin 12.6 g/dL (12.0-15.5) 11.4 g/dL (12.0-15.5) Hematocrit 37.2 % (36.0-47.0) 33.5 % (36.0-47.0) Mean Corpuscular Volume 105 fL (79-100) 104 fL (79-100) Mean Corpuscular Hemoglobin 36 pg (25-35) 35 pg (25-35) Mean Corpuscular Hemoglobin Concent 34 g/dL (31-37) 34 g/dL (31-37) Red Cell Distribution Width 12.9 % (11.5-14.5) 12.9 % (11.5-14.5) Platelet Count 313 x10^3/uL (140-400) 295 x10^3/uL (140-400) Sodium Level 138 mmol/L (136-145) 140 mmol/L (136-145) Potassium Level 4.0 mmol/L (3.5-5.1) 3.4 mmol/L (3.5-5.1) Chloride Level 103 mmol/L (98-107) 105 mmol/L (98-107) Carbon Dioxide Level 20 mmol/L (21-32) 25 mmol/L (21-32) Anion Gap 15 (6-14) 10 (6-14) Blood Urea Nitrogen 6 mg/dL (7-20) 3 mg/dL (7-20) Creatinine 0.6 mg/dL (0.6-1.0) 0.6 mg/dL (0.6-1.0) Estimated GFR (Cockcroft-Gault) 102.3 102.3 BUN/Creatinine Ratio 10 (6-20) 5 (6-20) Glucose Level 121 mg/dL (70-99) 117 mg/dL (70-99) Calcium Level 8.4 mg/dL (8.5-10.1) 8.5 mg/dL (8.5-10.1) Total Bilirubin 0.8 mg/dL (0.2-1.0) 0.7 mg/dL (0.2-1.0) Aspartate Amino Transf (AST/SGOT) 68 U/L (15-37) 54 U/L (15-37) Alanine Aminotransferase (ALT/SGPT) 73 U/L (14-59) 65 U/L (14-59) Alkaline Phosphatase 177 U/L (46-116) 150 U/L (46-116) Total Protein 6.5 g/dL (6.4-8.2) 6.4 g/dL (6.4-8.2) Albumin 3.1 g/dL (3.4-5.0) 2.8 g/dL (3.4-5.0) Albumin/Globulin Ratio 0.9 (1.0-1.7) 0.8 (1.0-1.7) Neutrophils (%) (Auto) 63 % (31-73) Lymphocytes (%) (Auto) 29 % (24-48) Monocytes (%) (Auto) 6 % (0-9) Eosinophils (%) (Auto) 2 % (0-3) Basophils (%) (Auto) 0 % (0-3) Neutrophils # (Auto) 9.6 x10^3/uL (1.8-7.7) Lymphocytes # (Auto) 4.4 x10^3/uL (1.0-4.8) Monocytes # (Auto) 0.9 x10^3/uL (0.0-1.1) Eosinophils # (Auto) 0.3 x10^3/uL (0.0-0.7) Basophils # (Auto) 0.0 x10^3/uL (0.0-0.2) Laboratory Tests Test 05/02/19 04:30 White Blood Count 15.3 x10^3/uL (4.0-11.0) Red Blood Count 3.23 x10^6/uL (3.50-5.40) Hemoglobin 11.4 g/dL (12.0-15.5) Hematocrit 33.5 % (36.0-47.0) Mean Corpuscular Volume 104 fL (79-100) Mean Corpuscular Hemoglobin 35 pg (25-35) Mean Corpuscular Hemoglobin Concent 34 g/dL (31-37) Red Cell Distribution Width 12.9 % (11.5-14.5) Platelet Count 295 x10^3/uL (140-400) Neutrophils (%) (Auto) 63 % (31-73) Lymphocytes (%) (Auto) 29 % (24-48) Monocytes (%) (Auto) 6 % (0-9) Eosinophils (%) (Auto) 2 % (0-3) Basophils (%) (Auto) 0 % (0-3) Neutrophils # (Auto) 9.6 x10^3/uL (1.8-7.7) Lymphocytes # (Auto) 4.4 x10^3/uL (1.0-4.8) Monocytes # (Auto) 0.9 x10^3/uL (0.0-1.1) Eosinophils # (Auto) 0.3 x10^3/uL (0.0-0.7) Basophils # (Auto) 0.0 x10^3/uL (0.0-0.2) Sodium Level 140 mmol/L (136-145) Potassium Level 3.4 mmol/L (3.5-5.1) Chloride Level 105 mmol/L (98-107) Carbon Dioxide Level 25 mmol/L (21-32) Anion Gap 10 (6-14) Blood Urea Nitrogen 3 mg/dL (7-20) Creatinine 0.6 mg/dL (0.6-1.0) Estimated GFR (Cockcroft-Gault) 102.3 BUN/Creatinine Ratio 5 (6-20) Glucose Level 117 mg/dL (70-99) Calcium Level 8.5 mg/dL (8.5-10.1) Total Bilirubin 0.7 mg/dL (0.2-1.0) Aspartate Amino Transf (AST/SGOT) 54 U/L (15-37) Alanine Aminotransferase (ALT/SGPT) 65 U/L (14-59) Alkaline Phosphatase 150 U/L (46-116) Total Protein 6.4 g/dL (6.4-8.2) Albumin 2.8 g/dL (3.4-5.0) Albumin/Globulin Ratio 0.8 (1.0-1.7) Microbiology 04/28/19 Urine Culture - Final, Complete 04/28/19 Urine Culture Result 1 (PENNIE) - Final, Complete Medications Current Medications Hydromorphone HCl (Dilaudid) 1 mg PRN Q15MIN PRN IV/SQ PAIN GREATER THAN 3/10 Last administered on 04/28/19at 14:46; Start 04/28/19 at 11:45; Stop 04/28/19 at 16:15; Status DC Sodium Chloride 1,000 ml @ 1,000 mls/hr Q1H IV Last administered on 04/28/19at 12:00; Start 04/28/19 at 11:35; Stop 04/28/19 at 12:34; Status DC Iohexol (Omnipaque 300 Mg/ml) 75 ml 1X ONCE IV Last administered on 04/28/19at 13:04; Start 04/28/19 at 12:45; Stop 04/28/19 at 12:46; Status DC Iohexol (Omnipaque 300 Mg/ml) 100 ml STK-MED ONCE .ROUTE ; Start 04/28/19 at 12:37; Stop 04/28/19 at 12:37; Status DC Ondansetron HCl (Zofran) 4 mg 1X ONCE IV Last administered on 04/28/19at 14:20; Start 04/28/19 at 14:30; Stop 04/28/19 at 14:31; Status DC Ondansetron HCl (Zofran) 4 mg STK-MED ONCE .ROUTE ; Start 04/28/19 at 14:18; Stop 04/28/19 at 14:18; Status DC Sodium Chloride 1,000 ml @ 125 mls/hr Q8H IV Last administered on 05/02/19at 08:52; Start 04/28/19 at 18:00 Fentanyl Citrate (Fentanyl 2ml Vial) 50 mcg PRN Q2HR PRN IV PAIN Last administered on 04/30/19at 20:48; Start 04/28/19 at 18:00 Ondansetron HCl (Zofran) 4 mg PRN Q4HRS PRN IV NAUSEA/VOMITING Last administered on 8/14/19at 08:00; Start 04/28/19 at 18:00 Fentanyl Citrate (Fentanyl 2ml Vial) 100 mcg PRN Q2HR PRN IV PAIN Last administered on 05/02/19 10:47; Start 04/28/19 at 18:15 Alprazolam (Xanax) 0.5 mg QID PO Last administered on 05/02/19 08:52; Start 04/28/19 at 18:30 Cyclobenzaprine HCl (Flexeril) 10 mg PRN TID PRN PO PAIN Last administered on 05/01/19 21:14; Start 04/28/19 at 18:15 Metoclopramide HCl (Reglan) 10 mg QIDACHS PO Last administered on 05/02/19 10:47; Start 04/28/19 at 21:00 Montelukast Sodium (Singulair) 10 mg HS PO Last administered on 05/01/19 20:42; Start 04/28/19 at 21:00 Trazodone HCl (Desyrel) 50 mg QHS PO Last administered on 05/01/19 20:42; Start 04/28/19 at 21:00 Estradiol (Estrace) 2 mg DAILY PO Last administered on 05/02/19 08:52; Start 04/28/19 at 18:30 Losartan Potassium (Cozaar) 100 mg DAILY PO Last administered on 05/02/19 08:52; Start 04/28/19 at 18:30 Meloxicam (Mobic) 15 mg DAILY PO Last administered on 05/02/19 08:52; Start 04/28/19 at 18:30 Pantoprazole Sodium (Protonix) 40 mg DAILYAC PO Last administered on 05/02/19 08:52; Start 04/28/19 at 18:30 Zolpidem Tartrate (Ambien) 10 mg QHS PO Last administered on 05/01/19 20:42; Start 04/28/19 at 21:00 Albuterol Sulfate (Ventolin Neb Soln) 2.5 mg PRN Q4HRS PRN NEB SHORTNESS OF BREATH; Start 04/28/19 at 18:15 Fentanyl Citrate (Fentanyl 2ml Vial) 50 mcg 1X ONCE IV Last administered on 04/29/19 08:18; Start 04/29/19 at 08:00; Stop 04/29/19 at 08:04; Status DC Polyethylene Glycol (miraLAX PACKET) 17 gm DAILY PO Last administered on 05/01/19at 08:25; Start 04/30/19 at 10:00 Active Scripts Active Reported Trazodone Hcl 50 Mg Tablet 1 Tab PO QHS Proair Hfa Inhaler (Albuterol Sulfate) 8.5 Gm Hfa.aer.ad 2 Puff INH PRN Q4-6HRS PRN Losartan Potassium 100 Mg Tablet 100 Mg PO DAILY Hydrocodone-Acetamin 7.5-325 (Hydrocodone/Acetaminophen) 1 Each Tablet 1 Each PO PRN Q4-6HRS PRN Aspirin 81 Mg Tab.chew 1 Tab PO DAILY Montelukast Sodium Tablet (Montelukast Sodium) 10 Mg Tablet 10 Mg PO HS Reglan (Metoclopramide Hcl) 10 Mg Tablet 1 Tab PO QIDACHS Zolpidem Tartrate 10 Mg Tablet 10 Mg PO QHS Protonix (Pantoprazole Sodium) 20 Mg Tablet.dr 40 Mg PO DAILY Cyclobenzaprine Hcl 10 Mg Tablet 1 Tab PO TID PRN Alprazolam 0.5 Mg Tablet 1 Tab PO QID Estradiol 2 Mg Tablet 1 Tab PO DAILY Meloxicam 15 Mg Tablet 1 Tab PO DAILY Vitals/I & O Vital Sign - Last 24 Hours 05/01/19 05/01/19 05/01/19 05/01/19 13:14 14:30 15:00 15:52 Temp 97.9 97.9 Pulse 93 Resp 20 20 16 20 B/P (MAP) 176/76 (109) Pulse Ox 94 94 95 94 O2 Delivery Nasal Cannula Nasal Cannula Nasal Cannula Nasal Cannula O2 Flow Rate 2.0 2.0 2.0 2.0 05/01/19 05/01/19 05/01/19 05/01/19 18:00 18:07 18:08 19:00 Temp 99.6 99.6 Pulse 75 Resp 20 20 20 18 B/P (MAP) 174/84 (114) Pulse Ox 94 94 93 O2 Delivery Room Air Nasal Cannula Nasal Cannula Nasal Cannula O2 Flow Rate 2.0 2.0 2.0 05/01/19 05/01/19 05/01/19 05/01/19 19:45 20:40 20:42 23:00 Temp 99.2 99.2 Pulse 81 Resp 18 B/P (MAP) 165/87 (113) Pulse Ox 93 O2 Delivery Nasal Cannula Nasal Cannula Nasal Cannula Nasal Cannula O2 Flow Rate 2.0 2.0 2.0 2.0 05/02/19 05/02/19 05/02/19 05/02/19 00:26 00:27 01:18 03:00 Temp 99.2 99.2 Pulse 91 Resp 18 B/P (MAP) 139/60 (86) Pulse Ox 92 O2 Delivery Nasal Cannula Nasal Cannula Nasal Cannula Nasal Cannula O2 Flow Rate 2.0 2.0 2.0 2.0 05/02/19 05/02/19 05/02/19 05/02/19 04:06 04:55 06:22 07:00 Temp 98.3 98.3 Pulse 82 Resp 20 B/P (MAP) 162/82 (108) Pulse Ox 92 O2 Delivery Nasal Cannula Nasal Cannula Nasal Cannula Nasal Cannula O2 Flow Rate 2.0 2.0 2.0 2.0 05/02/19 05/02/19 05/02/19 05/02/19 07:09 08:52 08:52 09:36 Pulse 82 B/P (MAP) 162/82 O2 Delivery Nasal Cannula Nasal Cannula Room Air O2 Flow Rate 2.0 05/02/19 10:47 O2 Delivery Nasal Cannula Intake and Output 05/01/19 05/01/19 05/02/19 15:00 23:00 07:00 Intake Total 900 ml Output Total 1 ml Balance 899 ml Problem List Problems Medical Problems: (1) Acute pancreatitis Status: Acute (2) GERD (gastroesophageal reflux disease) Status: Chronic (3) HTN (hypertension) Status: Chronic (4) Leukocytosis Status: Acute Assessment Acute pancreatitis- improving, o/p MRCp and/or EUS to further assess as discussed with patient LIZA CALERO MD May 02, 2019 11:27
[2019-05-02] MEDS: CYCLOBENZAPRINE 10 MG TABLET. PO PRN ×2 (12:52→19:27)
--- NOTE | 2019-05-02 13:34 | PDOC ---
Provider Note Provider Note bp up, still lots of epigastric pain- will dc saline and mobic, add hctz, consider less estrace- suspect NAFLD re high lft, op mcrp ordered re pancreatitis- keep cl diet re persistant pain MARLEE MIGUEL MD May 02, 2019 13:34
[2019-05-02] MEDS: hydroCHLOROthiazide 25 MG TABLET PO SCH (14:25)
[2019-05-02] MEDS: POTASSIUM CL 20MEQ D5-0.45NACL 1,000 ML IV SCH (14:25)
[2019-05-02 15:00] VITALS: BP 174/88
[2019-05-02 19:00] VITALS: BP 146/75
[2019-05-02] MEDS: traZODone 50 MG TABLET. PO SCH (19:26)
[2019-05-02] MEDS: ZOLPIDEM 5 MG TABLET. PO SCH (19:27)
[2019-05-02] MEDS: MONTELUKAST SODIUM 10 MG TABLET. PO SCH (19:27)
[2019-05-02 23:00] VITALS: BP 142/65
[2019-05-03] MEDS: fentaNYL PF VIAL 100 MCG/2 ML VIAL IV PRN ×4 (01:44→08:02)
[2019-05-03] MEDS: POTASSIUM CL 20MEQ D5-0.45NACL 1,000 ML IV SCH (01:45)
[2019-05-03 03:00] VITALS: BP 146/74
[2019-05-03 07:00] VITALS: BP 159/80
[2019-05-03] MEDS: PANTOPRAZOLE 40 MG TABLET.DR. PO SCH (08:01)
[2019-05-03] MEDS: METOCLOPRAMIDE 10 MG TABLET. PO SCH ×2 (08:01→11:39)
[2019-05-03] MEDS: POLYETHYLENE GLYCOL 3350 17 GM PACKET. PO SCH (09:00)
[2019-05-03] MEDS: ALPRAZolam 0.5 MG TABLET PO SCH ×2 (09:59→13:49)
[2019-05-03] MEDS: ESTRADIOL 1 MG TABLET. PO SCH (09:59)
[2019-05-03] MEDS: hydroCHLOROthiazide 25 MG TABLET PO SCH (10:00)
[2019-05-03] MEDS: CYCLOBENZAPRINE 10 MG TABLET. PO PRN (10:00)
[2019-05-03 10:01] VITALS: BP 142/82
[2019-05-03] MEDS: LOSARTAN POTASSIUM 50 MG TABLET. PO SCH (10:01)
[2019-05-03 10:12] LABS: BASO # 0.1 x10^3/uL (0.0-0.2); BASO % 1 % (0-3); EOS # 0.8 x10^3/uL (0.0-0.7); EOS % 6 % (0-3); HEMATOCRIT 38.6 % (36.0-47.0); HEMOGLOBIN 13.3 g/dL (12.0-15.5); LYMPH # 4.6 x10^3/uL (1.0-4.8); LYMPH % 34 % (24-48); MEAN CORPUSCULAR HEMOGLOBIN 35 pg (25-35); MEAN CORPUSCULAR HGB CONC 35 g/dL (31-37); MEAN CORPUSCULAR VOLUME 103 fL (79-100); MONO # 0.9 x10^3/uL (0.0-1.1); MONO % 7 % (0-9); NEUT # 7.3 x10^3/uL (1.8-7.7); NEUT % 53 % (31-73); PLATELET COUNT 381 x10^3/uL (140-400); RED BLOOD COUNT 3.76 x10^6/uL (3.50-5.40); RED CELL DISTRIBUTION WIDTH 12.8 % (11.5-14.5); WHITE BLOOD COUNT 13.7 x10^3/uL (4.0-11.0)
[2019-05-03] MEDS ORDERED: HYDROcodone/APAP 7.5/325MG 1 TAB TABLET PO PRN (10:15)
--- NOTE | 2019-05-03 10:20 | PDOC ---
Provider Note Provider Note [id number] MARLEE MIGUEL MD May 03, 2019 10:20
[2019-05-03 10:30] LABS: CALCIUM 9.6 mg/dL (8.5-10.1); CREATININE 0.7 mg/dL (0.6-1.0); GFR 85.6; POTASSIUM 3.2 mmol/L (3.5-5.1)
[2019-05-03] MEDS ORDERED: POTASSIUM CHLORIDE 20 MEQ TABLET.ER. PO ONE (12:00)
--- NOTE | 2019-05-03 12:05 | DS ---
DATE OF DISCHARGE: 05/03/2019 HOSPITAL SUMMARY: This is a 58-year-old white female with chronic transaminitis of unknown cause, came in with recurrent pancreatitis and abdominal pain consistent with that. Her MCV was high at 104, but she was not anemic and prior B12 level had been normal. Chemistry profile was unremarkable with elevated transaminases, which were relatively stable and mildly low albumin at 3.1. Lipase went from 552 on admission to 289 the next day. Abdominal and pelvic CT showed fatty liver and enlarged liver, but no other abnormalities except mild inflammation around the pancreas. She was treated with intravenous fluids, intravenous fentanyl, and bowel rest, and gradually advanced her diet. Hydrochlorothiazide was added for hypertension and meloxicam held for the same reason. She is going to try some food today and will go home later today if she is feeling better, and she is off the intravenous fentanyl now at this time. FINAL DIAGNOSES: 1. Acute pancreatitis, etiology unknown. 2. Chronic transaminitis, suspect nonalcoholic fatty liver disease. 3. Hypertension. OPERATIONS, PROCEDURES, COMPLICATIONS: None. CONSULTATION: Kennedy Alonzo MD DISPOSITION: Home medications remained the same. Dr. Osuna will see her in 1 week in regard to the possibility of needing to add hydrochlorothiazide to her regimen. She is advised that meloxicam and estrogen both can raise blood pressure and will discuss that with Dr. Osuna. No new medicines were given. She will have an outpatient MRCP under the direction of Dr. Alonzo in the next 1-2 weeks regarding the recurrent pancreatitis. Low-fat calorie reduction diet, no alcohol, and prognosis is guarded. MARLEE MIGUEL MD DR: HANNAH/nohemi JOB#: [id number] / [id number]
--- NOTE | 2019-05-03 14:45 | NUR ---
Discharge Note: JALEESA KITCHEN [place] Discharge instructions and discharge home medications reviewed with Patient and a copy given. All questions have been answered and understanding verbalized. The following instructions and handouts were given: pancreatitis, diets Discontinued lines and drains: peripheral line. Patient discharged to home with spouse via private vehicle.
== END 2019-05-03 14:51 | disposition home or self-care (01) | DRG 438 ==
LOC: ER 11:21 → 5 NORTH 14:00
PROVIDERS: ADMIT Family Medicine; ATTEND Family Medicine
DX: K85.90 Acute pancreatitis without necrosis or infection, unspecified (principal); R65.11 Systemic inflammatory response syndrome (SIRS) of non-infectious origin with acute organ dysfunction; K21.9 Gastro-esophageal reflux disease without esophagitis; J45.909 Unspecified asthma, uncomplicated; F41.9 Anxiety disorder, unspecified; Z90.81 Acquired absence of spleen; G89.29 Other chronic pain; M19.90 Unspecified osteoarthritis, unspecified site; K76.0 Fatty (change of) liver, not elsewhere classified; I10 Essential (primary) hypertension; Z90.49 Acquired absence of other specified parts of digestive tract; Z90.710 Acquired absence of both cervix and uterus; Z79.891 Long term (current) use of opiate analgesic; Z88.1 Allergy status to other antibiotic agents; Z88.5 Allergy status to narcotic agent; Z88.2 Allergy status to sulfonamides; Z88.8 Allergy status to other drugs, medicaments and biological substances; Z85.3 Personal history of malignant neoplasm of breast
CPT/HCPCS: 36415; 74177; 80048; 80053; 81001; 82150; 83605; 83690; 84484; 85007; 85025; 85027; 85730; 87086; 93005; 94760; 96361; 96374; 96375; 96376; J1170; J2405; J3010; J7030; J8597; Q9967; 99285-25; G0378

== ENCOUNTER → 2019-05-11 | Outpatient (CLI) | payer OTHER ==
[2019-05-03 10:01] VITALS: BP 142/82
[~2019-05-11] MED LIST changes: +ALBU2.5V8 INH; +TRAZ-118 PO
--- NOTE | 2019-05-11 10:19 | RAD ---
MRCP WO CONTRAST: 05/11/2019 8:15 AM INDICATION: 58 years old Female. Abdominal pain with pancreatitis. History of cholecystectomy. COMPARISON: CT abdomen/pelvis 04/28/2019. TECHNIQUE: Multiplanar multisequence MR imaging of the abdomen was performed both before and after the intravenous administration of gadolinium. MRCP protocol was utilized. FINDINGS: LUNG BASES: Unremarkable. ABDOMEN: LIVER: Normal morphology. There is severe diffuse hepatic steatosis present. There is no focal hepatic parenchymal abnormality. Right hepatic lobe measures 20.3 cm in craniocaudal dimension. BILE DUCTS: CBD 9 mm. There is no intra or extrahepatic biliary ductal dilatation. There is no filling defect, stricture, obstructing lesion or biliary wall thickening identified. GALLBLADDER: Cholecystectomy. PANCREAS: Normal caliber pancreatic duct. Mild peripancreatic and plantar changes compatible with pancreatitis. No peripancreatic fluid collection is identified. SPLEEN: Surgically absent with a cyst measuring 16 mm within involving a splenule. ADRENAL GLANDS: Unremarkable. KIDNEYS: Superior pole left renal cyst measures 10 mm.. No hydronephrosis. BOWEL: Normal caliber. PERITONEUM: No ascites or free air. No fluid collection. VASCULATURE: No abdominal aortic aneurysm. Major abdominal veins are patent. RETROPERITONEUM: Within normal limits. LYMPH NODES: Within normal limits. ABDOMINAL WALL: Unremarkable. BONES: No suspicious osseous abnormality. IMPRESSION: Unremarkable MRCP examination without evidence of biliary dilatation, stricture, filling defect, wall thickening or obstructing mass lesion. Gallbladder surgically absent without significant intrahepatic or extrahepatic biliary ductal dilatation. Common bile duct measures up to 9 mm. Mild edematous interstitial pancreatitis. No peripancreatic fluid collection is identified. 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 Severe hepatic steatosis. Electronically signed by: Alize Case MD (05/11/2019 10:16 AM) [id number]
== END | disposition home or self-care (01) ==
LOC: MRI 07:16
PROVIDERS: ATTEND Internal Medicine Gastroenterology
DX: K76.0 Fatty (change of) liver, not elsewhere classified (principal); K86.1 Other chronic pancreatitis; N28.1 Cyst of kidney, acquired; D73.89 Other diseases of spleen; Z90.49 Acquired absence of other specified parts of digestive tract; Z90.81 Acquired absence of spleen; F40.240 Claustrophobia
CPT/HCPCS: 74181